=== PATIENT | male | born 1970 | race Two or more races ===

== ENCOUNTER 2018-06-23 19:10 | Emergency (ER) | payer BC, OTHER ==
[~2018-06-23] VITALS: Ht 172.7 cm; Wt 110.7 kg
[2018-06-23 20:45] VITALS: BP 144/86
[2018-06-23] MEDS ORDERED: cefTRIAXone SOD 1,000 MG VL IM ONE (20:45)
[2018-06-23] MEDS ORDERED: methylPREDNISolone SOD SUCC 125 MG/2 ML VL IM ONE (20:45)
== END 2018-06-23 20:52 | disposition home or self-care (01) ==
LOC: ER 19:10
DX: S50.862A Insect bite (nonvenomous) of left forearm, initial encounter (principal); W57.XXXA Bitten or stung by nonvenomous insect and other nonvenomous arthropods, initial encounter; Y93.89 Activity, other specified; Y99.8 Other external cause status; Y92.89 Other specified places as the place of occurrence of the external cause
CPT/HCPCS: 82962; 96372; 99283; J0696; J2930